=== PATIENT | female | born 1945 | race Caucasian/White ===

== ENCOUNTER 2016-07-24 11:01 | Emergency (ER) | payer SELFPAY ==
[~2016-07-24] VITALS: Ht 157.5 cm; Wt 71.0 kg
[2016-07-24] MEDS ORDERED: TYLENOL WITH C1 EACH PO (13:21)
[2016-07-24] MEDS ORDERED: VERAPAMIL HCL240 MG PO (13:31)
[2016-07-24] MEDS ORDERED: HYDROCHLOROTHIA50 MG PO (13:32)
[2016-07-24] MEDS ORDERED: LEVOTHYROXINE100 MCG PO (13:32)
[2016-07-24] MEDS ORDERED: POTASSIUM CHLO20 ME1 PO (13:32)
[2016-07-24 13:46] VITALS: BP 132/98
== END 2016-07-24 13:48 | disposition home or self-care (01) ==
LOC: EME 11:01
DX: S70.02XA Contusion of left hip, initial encounter (principal); W01.0XXA Fall on same level from slipping, tripping and stumbling without subsequent striking against object, initial encounter; Y92.512 Supermarket, store or market as the place of occurrence of the external cause; I10 Essential (primary) hypertension; E03.9 Hypothyroidism, unspecified; Z88.0 Allergy status to penicillin; Z87.891 Personal history of nicotine dependence
CPT/HCPCS: 73502; 99281; 99284

== ENCOUNTER 2017-07-06 09:25 | Observation (INO) | payer OTHER ==
[~2017-07-06] VITALS: Ht 157.5 cm; Wt 71.8 kg
[~2017-07-06 09:25] MED LIST: HYDROCHLOROTHIA50 MG PO; LEVOTHYROXINE100 MCG PO; POTASSIUM CHLO20 ME1 PO; TYLENOL WITH C1 EACH PO; VERAPAMIL HCL240 MG PO
[2017-07-06 11:44] LABS: BASOPHIL (%) 0.3 % (0-1); EOSINOPHIL (%) 1.8 % (0-5); EOSINOPHIL COUNT 0.1 K/uL (0-0.3); HEMATOCRIT 43.5 % (36.0-46.0); HEMOGLOBIN 15.2 G/DL (11.9-15.5); IMMATURE GRANULOCYTE (%) 0.1 % (0.0-0.7); LYMPHOCYTE (%) 24.8 % (15-42); LYMPHOCYTE COUNT 1.8 K/uL (1.0-2.8); MCH 32.1 PG (29.0-34.0); MCHC 34.9 G/DL (30.0-36.0); MONOCYTE (%) 6.6 % (3-12); MONOCYTE COUNT 0.5 K/uL (0-0.8); NEUTROPHIL (%) 66.4 % (45-76); NEUTROPHIL COUNT 4.7 K/uL (1.8-6.4); NRBC (%) 0.3 /100 WBC (0-0); PLATELET COUNT 249 K/uL (156-360); RBC DIS.WIDTH-CV 12.6 % (11.8-14.6); RBC DIS.WIDTH-SD 42.9 % (39-53); RED BLOOD COUNT 4.73 M/uL (3.80-5.20); WHITE BLOOD COUNT 7.1 K/uL (4.1-10.2)
[2017-07-06 11:53] LABS: CHLORIDE 104 mEq/L (99-109); POTASSIUM 3.7 mEq/L (3.7-5.4); PTT 29.6 SEC (25-37); SODIUM 140 mEq/L (136-147)
[2017-07-06 11:55] LABS: GLUCOSE 126 mg/dL (70-99)
[2017-07-06 11:59] LABS: CREATININE 1.1 mg/dL (0.6-1.3); GFR ESTIMATE (CALCULATED) 52 mL/min/
[2017-07-06 12:00] LABS: UREA NITROGEN (BUN) 17 mg/dL (9-23)
[2017-07-06 12:06] LABS: TROP-I INTERPRETATION NEGATIVE; TROPONIN-I < 0.01 ng/mL (0.0-0.30)
[2017-07-06] MEDS ORDERED: TYLENOL WITH C1 EACH PO (13:03)
[2017-07-06] MEDS ORDERED: LEVOTHYROXINE88 MCG PO (13:55)
[2017-07-06] MEDS ORDERED: POTASSIUM CHLO20 ME2 PO (13:55)
[2017-07-06] MEDS ORDERED: HYDROCHLOROTHIA50 MG PO (13:55)
[2017-07-06] MEDS ORDERED: VERAPAMIL HCL240 MG PO (13:55)
[2017-07-06 17:02] LABS: TROP-I INTERPRETATION NEGATIVE; TROPONIN-I < 0.01 ng/mL (0.0-0.30)
[2017-07-06 17:04] VITALS: BP 121/58
[2017-07-06 19:00] VITALS: BP 117/68
[2017-07-06 23:50] VITALS: BP 120/77
[2017-07-07 00:58] LABS: TROP-I INTERPRETATION NEGATIVE; TROPONIN-I < 0.01 ng/mL (0.0-0.30)
[2017-07-07 04:54] VITALS: BP 164/74
[2017-07-07 07:35] VITALS: BP 126/58
[2017-07-07] MEDS ORDERED: TRAMADOL HCL50 MG PO (08:47)
[2017-07-07] MEDS ORDERED: CYCLOBENZAPRINE5 MG PO (08:47)
== END 2017-07-07 09:21 | disposition home or self-care (01) ==
LOC: EME 09:25 → EDOF 13:50 → 4SOUTH 13:50 → EDOF 13:50 → ENRESERV 13:54 → 4SOUTH 15:57 → ENPENDDIS 07-07 → 4SOUTH 07-07 09:21
PROVIDERS: Emergency Medicine; Internal Medicine
DX: S29.012A Strain of muscle and tendon of back wall of thorax, initial encounter (principal); X50.0XXA Overexertion from strenuous movement or load, initial encounter; Y93.89 Activity, other specified; R94.31 Abnormal electrocardiogram [ECG] [EKG]; I10 Essential (primary) hypertension; E03.9 Hypothyroidism, unspecified; Z82.49 Family history of ischemic heart disease and other diseases of the circulatory system; Z87.891 Personal history of nicotine dependence; Z88.0 Allergy status to penicillin
CPT/HCPCS: 71045; 80048; 84484; 85025; 85610; 85730; 93005; 99281; 99284; G0378